=== PATIENT | male | born 1960 | race Caucasian/White ===

== ENCOUNTER 2024-06-25 11:19 | Emergency (ER) | payer MEDICARE ==
[2024-06-25] MEDS: Aspirin 325 MG Tab.EC PO ONE (12:06)
[2024-06-25 12:21] LABS: BASOPHILS ABSOLUTE AUTO 0.06 K/uL (0.00-0.10); BASOPHILS PERCENT AUTO 0.7 % (0.1-1.3); EOSINOPHILS ABSOLUTE AUTO 0.15 K/uL (0.00-0.40); EOSINOPHILS PERCENT AUTO 1.7 % (0.0-5.4); HEMATOCRIT 51.4 % (38.4-49.7); IMMATURE GRAN ABSOLUTE AUTO 0.07 K/uL (0.00-0.23); IMMATURE GRAN PERCENT AUTO 0.8 % (0.0-0.7); LYMPHOCYTES ABSOLUTE AUTO 2.44 K/uL (0.8-3.3); LYMPHOCYTES PERCENT AUTO 27.1 % (11.4-47.7); MEAN CORPUSCULAR HEMOGLOBIN 32.9 pg (31.6-35.5); MEAN CORPUSCULAR HGB CONC 36.2 g/dL (31.6-35.5); MONOCYTES ABSOLUTE AUTO 0.63 K/uL (0.20-0.90); NEUTROPHILS ABSOLUTE AUTO 5.67 K/uL (1.0-7.6); NEUTROPHILS PERCENT AUTO 62.7 % (40.0-78.1); PLATELET COUNT,PLT 178 K/uL (130-375); RED BLOOD CELL COUNT 5.65 M/uL (4.14-5.76)
[2024-06-25 12:32] LABS: HEMOGLOBIN 18.6 g/dL (12.9-16.9)
[2024-06-25 12:40] LABS: PROTHROMBIN TIME 10.6 sec (9.2-10.6); PTT,PARTIAL THROMBOPLSTIN TIME 31.2 sec (21.8-27.3)
[2024-06-25 12:41] LABS: ALANINE AMINOTRANSFERASE,ALT 25 U/L (12-78); ALBUMIN 3.7 g/dL (3.4-5.0); ALKALINE PHOSPHATASE 75 U/L (46-116); ASPARTATE AMNIOTRANSFERASE,AST 15 U/L (15-37); BILIRUBIN TOTAL 0.7 mg/dL (0.2-1.0); BLOOD UREA NITROGEN,BUN 16 mg/dL (7-18); CALCIUM 9.5 mg/dL (8.5-10.1); CARBON DIOXIDE,CO2 23 mmol/L (21-32); CHLORIDE,CL 101 mmol/L (100-108); CREATININE 0.9 mg/dL (0.8-1.3); ESTIMATED GFR 97 mL/min (>60); GLUCOSE RANDOM 131 mg/dL (74-106); PROTEIN TOTAL,TP 7.4 g/dL (6.4-8.2); SODIUM,NA 136 mmol/L (140-148)
== END 2024-06-25 14:03 | disposition home or self-care (01) ==
LOC: JP.ED 11:19
DX: G51.0 Bell's palsy (principal); I10 Essential (primary) hypertension; E78.00 Pure hypercholesterolemia, unspecified; E66.9 Obesity, unspecified; E11.9 Type 2 diabetes mellitus without complications; Z79.899 Other long term (current) drug therapy; Z79.4 Long term (current) use of insulin; Z68.35 Body mass index [BMI] 35.0-35.9, adult
CPT/HCPCS: 36415; 70450; 70486; 80053; 84484; 85025; 85610; 85730; 93005; 93010; 99283; 99284; A9270-GY

== ENCOUNTER 2024-07-20 09:52 | Day surgery (SDC) | payer MEDICARE ==
[2024-07-20 10:13] LABS: HEMATOCRIT 56.5 % (38.4-49.7); MEAN CORPUSCULAR HEMOGLOBIN 31.8 pg (31.6-35.5); MEAN CORPUSCULAR HGB CONC 33.6 g/dL (31.6-35.5); MEAN CORPUSCULAR VOLUME 94.5 fL (81.4-99.0); RED BLOOD CELL COUNT 5.98 M/uL (4.14-5.76)
[2024-07-20] MEDS ORDERED: Dexamethasone 4 MG/ML SDV ONE (10:22)
[2024-07-20] MEDS ORDERED: Propofol 200 MG/20 ML SDV ONE ×2 (10:22→14:16)
[2024-07-20] MEDS ORDERED: Rocuronium 50 MG/5 ML Vial ONE (10:22)
[2024-07-20] MEDS ORDERED: Neostigmine Methylsulfate 10 MG/10 ML MDV ONE (10:22)
[2024-07-20] MEDS ORDERED: Ondansetron 4 MG/2 ML SDV ONE (10:22)
[2024-07-20] MEDS ORDERED: Succinylcholine 200 MG/10 ML MDV ONE (10:22)
[2024-07-20] MEDS ORDERED: Glycopyrrolate 0.2 MG/ML 5 ML MDV ONE (10:22)
[2024-07-20] MEDS ORDERED: fentaNYL 250 MCG/5 ML SDV ONE (10:24)
[2024-07-20 10:31] LABS: ANION GAP 10.6 mmol/L (5.0-14.0); BLOOD UREA NITROGEN,BUN 15 mg/dL (7-18); CALCIUM 9.9 mg/dL (8.5-10.1); CARBON DIOXIDE,CO2 27 mmol/L (21-32); CHLORIDE,CL 102 mmol/L (100-108); CREATININE 1.1 mg/dL (0.8-1.3); ESTIMATED GFR 76 mL/min (>60); GLUCOSE RANDOM 140 mg/dL (74-106); POTASSIUM,K 4.5 mmol/L (3.6-5.2); SODIUM,NA 140 mmol/L (140-148)
[2024-07-20] MEDS: Nozin Nasal Sanitizer NASBOTH ONE (11:02)
[2024-07-20] MEDS: Lactated Ringers 1,000 ML IV SCH (11:05)
[2024-07-20] MEDS: ceFAZolin 2 GM in Premix Bag 1 BAG IV ONE (12:57)
[2024-07-20] MEDS ORDERED: Sugammadex Sodium 200 MG/2 ML VIAL IV ONE (14:38)
[2024-07-20] MEDS ORDERED: Lactated Ringers 1,000 ML ONE (14:43)
== END 2024-07-20 16:32 | disposition home or self-care (01) ==
LOC: JP.SDS 09:52
PROVIDERS: ATTEND Specialist
DX: M75.111 Incomplete rotator cuff tear or rupture of right shoulder, not specified as traumatic (principal); M19.011 Primary osteoarthritis, right shoulder; M25.811 Other specified joint disorders, right shoulder; S43.431A Superior glenoid labrum lesion of right shoulder, initial encounter; I11.0 Hypertensive heart disease with heart failure; I50.9 Heart failure, unspecified; E11.9 Type 2 diabetes mellitus without complications
CPT/HCPCS: 01630; 29822; 29824; 36415; 80048; 85027; A9270; C1713; J0330; J0690; J1100; J1596; J2405; J2704; J2710; J3010; J7120; J3490